=== PATIENT | female | born 1960 | race Caucasian/White ===

== ENCOUNTER 2016-11-16 10:03 | Inpatient (IN) | payer OTHER ==
[~2016-11-16] VITALS: Ht 162.6 cm; Wt 95.3 kg
[2016-11-16] MEDS ORDERED: LORAZEPAM 1 MG TABLET PO PRN ×2 (12:45)
[2016-11-16] MEDS ORDERED: LORAZEPAM 2 MG/1 ML VIAL IM PRN (12:45)
[2016-11-16] MEDS ORDERED: DICYCLOMINE HCL 20 MG TABLET PO PRN (12:45)
[2016-11-16] MEDS ORDERED: ONDANSETRON ODT 4 MG TAB.RAPDIS SL PRN (12:45)
[2016-11-16] MEDS ORDERED: MIRALAX 17 GM POWD.PACK PO PRN (12:45)
[2016-11-16] MEDS ORDERED: IBUPROFEN 400 MG TABLET PO PRN (12:45)
[2016-11-16] MEDS ORDERED: ACETAMINOPHEN 325 MG TABLET PO PRN (12:45)
[2016-11-16] MEDS ORDERED: LOPERAMIDE HCL 2 MG CAPSULE PO PRN ×2 (12:45)
[2016-11-16] MEDS ORDERED: ONDANSETRON 4 MG/2 ML VIAL IM PRN (12:45)
[2016-11-16] MEDS ORDERED: CLONIDINE HCL 0.1 MG TABLET PO PRN (12:45)
[2016-11-16] MEDS ORDERED: MAG HYDROX/AL HYDROX/SIMETH 30 ML LIQUID UDC PO PRN (12:45)
[2016-11-16] MEDS ORDERED: MAGNESIUM HYDROXIDE 30 ML LIQUID UDC PO PRN (12:45)
--- NOTE | 2016-11-16 12:45 | NUR ---
Pre-admission: Patient was seen in the intake office at this time. Alert and oriented x 4. Able to make her needs known. Answers questions regarding the admission process appropriately. VS as ff: Temp 97.2, Pulse 101, RR 17, BP 130/83, PL 0/10, O2 sat at RA 96%. CIWA 4 due to anxiety and barely sweats. Patient appears anxious during the pre-admission assessment. Reassurance and redirection was provided with help. Reports NKA. No seizure history. Ambulatory ad sammie with slow steady gait. Reports past medical hx of depression and anxiety in 2001m also on menopausal and essential tremors. States that she is under the care of Dr. Purvis. Her LBM 11/16/2016 at 0500. Able to void independently. No complains of dysuria. Substance Use as ff: 1. ETOH (Vodka) - since 18 years old. Reports drinking 500cc of Vodka a day for the past 2 years. Last use was today at 1030am and states that she took 6 shots at 1030 am. 2.Klonopin since 15 years ago. Reports taking 1 to 2 mg daily. Last use was 1 mg PO at 11/15/2016 at 1700. Patient brought home meds. Consented for proper disposal of all controlled substances. Addendum: 11/16/16 at 1426 by ROD BOWERS LVN Patient appears acutely intoxicated at the time of arrival.
[2016-11-16] MEDS ORDERED: DESV100T PO (12:48)
[2016-11-16] MEDS ORDERED: PROG100C3 PO (12:48)
[2016-11-16] MEDS ORDERED: GABA-534 PO (12:49)
[2016-11-16] MEDS ORDERED: PROP20TA7 PO (12:50)
[2016-11-16] MEDS ORDERED: ESTR0.5T PO (12:51)
[2016-11-16 13:00] VITALS: BP 138/83
--- NOTE | 2016-11-16 13:00 | NUR ---
Admission Note: Patient in the unit at this time. Escorted by female BHT. Admitted a 56 year old female, who states that she is here to detox off of alcohol. Remains alert and oriented x 4. No changes in LOC noted. Respirations even and unlabored. No SOB noted. No cough. No congestion noted. Abdomen soft and non-distended with (+) BS in all 4 quadrants. No complains of N/V/D or constipation noted. Bladder non-distended. Skin check done. Noted patient with generalized circular shaped rashes all over body area. Patient complains of itching. Patient states "I think it's a reaction to a meds or to my anxiety." Dr. Lambert made aware of patient's skin condition with new orders noted. Orientation to the unit was provided and explained all rules and regulation. Appears to comply with treatment at this time. Patient reports that this is her first time in detox and in treatment. Reports family hx of breast CA, colon CA, heart disease, depression, dementia and ETOH abuse. Patient kept comfortable with lunch served at bedside. All needs met and attended. Will continue to monitor closely.
[2016-11-16 13:13] LABS: *URINE HCG, QUAL NEG (NEGATIVE)
[2016-11-16] MEDS ORDERED: HYDROCORTISONE 1% CREAM 30 GM TUBE TP PRN (13:30)
[2016-11-16] MEDS ORDERED: HYDROXYZINE PAMOATE 25 MG CAPSULE PO ONE (13:30)
[2016-11-16] MEDS ORDERED: ESTR1TAB17 PO (13:42)
--- NOTE | 2016-11-16 13:55 | NUR ---
Vistaril 25 mg PO given x 1: 1 dose of Vistaril 25 mg PO given per MD Lambert to aid in itching and anxiety. Will monitor for effectiveness.
[2016-11-16] MEDS ORDERED: THIAMINE HCL 200 MG/2 ML VIAL IM ONE (14:00)
--- NOTE | 2016-11-16 14:55 | NUR ---
Re-assessment: Per patient, PRN Vistaril was effective in reducing anxiety. Patient is seen in bed with her eyes closed. Chest movement noted. On fall precautions. Call light kept in reach.
[2016-11-16 14:59] LABS: *AMPHETAMINE, URINE NEGATIVE (NEGATIVE); *BARBITURATE, URINE NEGATIVE (NEGATIVE); *CANNABINOID, URINE NEGATIVE (NEGATIVE); *COCCAINE, URINE NEGATIVE (NEGATIVE); *OPIATE, URINE NEGATIVE (NEGATIVE); *PHENCYCLIDINE SCREEN,URINE NEGATIVE (NEGATIVE)
[2016-11-16 16:00] VITALS: BP 140/89
[2016-11-16] MEDS: PROPRANOLOL HCL 20 MG TABLET PO PRN ×2 (16:28→20:32)
--- NOTE | 2016-11-16 16:28 | NUR ---
Propranolol 20mg/Zofran 4 mg ODT and Ativan 1 mg PO given: PRATIBHA 11. Notified MD Lambert. Per MD, ok to give Ativan 1 mg PO at this time. Also noted with tremors, sweating, nausea, anxiety. Medicated patient with Propranolol 20 mg and Zofran 4 mg ODT as ordered. Will monitor for effectiveness.
[2016-11-16 17:27] LABS: BASOPHILS % (AUTO) 0.5 % (0.0-2.0); EOSINOPHILS # (AUTO) 0.2 K/uL (0.0-0.7); EOSINOPHILS % (AUTO) 2.1 % (0.0-7.0); HEMATOCRIT 48.1 % (37-47); HEMOGLOBIN 16.7 G/DL (12.0-16.0); LYMPHOCYTES # (AUTO) 2.3 K/UL (0.8-4.8); LYMPHOCYTES % (AUTO) 28.3 % (20.5-51.5); MEAN CORPUSCULAR HEMOGLOBIN 32.7 UUG (27.0-31.0); MEAN CORPUSCULAR HGB CONC 35 g/dL (32.0-37.0); MEAN CORPUSCULAR VOLUME 94.3 FL (81.0-99.0); MONOCYTES # (AUTO) 0.8 K/UL (0.1-1.30); MONOCYTES % (AUTO) 9.2 % (0.0-11.0); NEUTROPHILS # (AUTO) 4.9 K/UL (1.8-8.9); NEUTROPHILS % (AUTO) 59.9 % (38.5-71.5); PLATELET COUNT (AUTO) 263 K/UL (150-450); WHITE BLOOD COUNT (AUTO) 8.2 K/UL (4.0-11.2)
--- NOTE | 2016-11-16 17:28 | NUR ---
Re-assessment: CIWA 6. No nausea reported. No vomiting. Less anxiety and less tremors noted. PRN Zofran, Ativan and Propranolol was effective in reducing patient's withdrawal symptoms.
[2016-11-16 17:30] LABS: BILIRUBIN,TOTAL 0.6 mg/dL (0.2-1.0); CREATININE 0.8 mg/dL (0.6-1.3); TOTAL PROTEIN, SERUM 7.5 g/dL (6.4-8.2)
[2016-11-16 17:40] LABS: THYROID STIMULATING HORMONE 2.337 mIU/mL (0.358-3.740)
--- NOTE | 2016-11-16 18:41 | NUR ---
End of Shift Notes: Patient is a 56 year old female admitted on 11/16/2016 for ETOH dependence who was placed on a 5-day Ativan taper as ordered which will be started tomorrow AM. Has past medical hx of anxiety, depression, menopause, essential tremors, endometrial resection and breast lumpectomy. Prior to admission, patient was using 500cc of Vodka a day for 2 years and 1 -2 mg of Klonopin for the past 15 years. On fall and seizure precautions. Regular diet. NKA. FULL CODE. VS monitored closely q 4 hours. No significant abnormalities noted. Withdrawal symptoms were closely monitored. Initial CIWA upon admission 4. At 1600, patients CIWA was 11, patient presented with gross tremors, nausea, anxiety, chills and sweats. Medicated patient with Ativan 1 mg PO, Zofran 4 mg ODT and Propranolol 20 mg PO at 1628, with help after 1 hour. Last CIWA 6. Patient presented with fatigue, anxiety and nervousness. Patient was medicated with Vistaril 25 mg PO at 1355 for anxiety with help after 1 hour. Patient was not able to participate in group and activities. Appears anxious and withdrawn. Redirection provided. Intake 1625cc, void x 4, BM x 1. Will continue to monitor closely.
[2016-11-16 20:00] VITALS: BP 134/81
--- NOTE | 2016-11-16 20:00 | NUR ---
START OF SHIFT NOTE RECEIVED REPORT FROM DAY SHIFT NURSE. PATIENT IS A 56 YEAR OLD FEMALE, ADMITTED FOR ETOH/BENZO DEPENDENCE. PATIENT IS ON 5 DAY ATIVAN TAPER. PATIENT IS FULL CODE, REGULAR DIET AND NO KNOWN ALLERGY. PATIENT DRINKS 500 CC OF VODKA DAILY FOR 2 YEARS AND TAKES KLONOPIN 1-2 MG DAILY FOR 15 YEARS. PATIENT REPORTS PMH OF ANXIETY. DEPRESSION, MENOPAUSE, ESSENTIAL TREMOR, NO SEIZURE HISTORY. SURGERY HISTORY OF ENDOMETRIAL RESECTION AND BREAST LUMPECTOMY. NO SEIZURE HISTORY. PATIENT IS ON FALL/SEIZURE PRECAUTION. UPON ADMISSION, PATIENT WITH GENERALIZED RASHES, HYDROCORTISONE AVAILABLE. PATIENT WAS GIVEN ZOFRAN AND PROPRANOLOL DURING THE DAY.PATIENT IN HE R ROOM, PATIENT NOTED WITH TREMORS, STATES ANXIETY, ABDOMINAL CRAMPING, SLIGHTLY NAUSEATED BUT NO EMESIS, SHE STATES THAT SHE GOT ZOFRAN EARLIER, DENIES ANY PAIN AND APPETITE IS GOOD. RELAXATION TECHNIQUE PROVIDED. SAFETY MEASURES IN PLACE. CALL LIGHT IN REACH. WILL CONTINUE TO MONITOR.
[2016-11-16] MEDS: GABAPENTIN 300 MG CAPSULE PO SCH (20:31)
--- NOTE | 2016-11-16 20:32 | NUR ---
PRN INDERAL AND HYDROCORTISONE CREAM GIVEN PATIENT NOTED WITH TREMORS AND C/O OF ITCHINESS. PRN INDERAL AND HYDROCORTISONE GIVEN. WILL MONITOR FOR EFFECTIVENESS
[2016-11-16] MEDS ORDERED: LORAZEPAM 1 MG TABLET PO SCH (21:00)
--- NOTE | 2016-11-16 21:33 | NUR ---
PRN INDERAL AND HYDROCORTISONE RE-ASSESSMENT PATIENT STATES HYDROCORTISONE AND INDERAL HELPFUL. TREMORS AND ITCHINESS SUBSIDED . WILL CONTINUE TO MONITOR.
[2016-11-16] MEDS: diphenhydrAMINE 50 MG CAPSULE PO PRN (21:40)
--- NOTE | 2016-11-16 21:40 | NUR ---
PRN BENADRYL ADMINISTRATION PATIENT REQUESTS FOR SLEEP AID. PRN BENADRYL GIVEN. WILL MONITOR FOR EFFECTIVENESS
--- NOTE | 2016-11-16 23:00 | NUR ---
BHAVANI MARCELO RE-ASSESSMENT PATIENT IN BED ASLEEP. NO S/S OF DISTRESS. RESPIRATION EVEN AND UNLABORED. SAFETY MEASURES IN PLACE. CALL LIGHT IN REACH. WILL CONTINUE TO MONITOR
--- NOTE | 2016-11-16 23:03 | NUR ---
PRN INDERAL AND HYDROCORTISONE CREAM GIVEN PATIENT NOTED WITH TREMORS AND C/O OF ITCHINESS. PRN INDERAL AND HYDROCORTISONE GIVEN. WILL MONITOR FOR EFFECTIVENESS Addendum: 11/16/16 at 2310 by KAYY BARNHART LVN ERROR;DUPLICATE
--- NOTE | 2016-11-16 23:03 | NUR ---
PRN INDERAL AND HYDROCORTISONE CREAM GIVEN PATIENT NOTED WITH TREMORS AND C/O OF ITCHINESS. PRN INDERAL AND HYDROCORTISONE GIVEN. WILL MONITOR FOR EFFECTIVENESS Addendum: 11/16/16 at 2311 by KAYY BARNHART LVN ERROR: DUPLICATE
[2016-11-17] VITALS: BP 109/68
[2016-11-17 04:00] VITALS: BP 109/69
--- NOTE | 2016-11-17 07:15 | NUR ---
End of Shift Notes: Received patient in her room. Alert and oriented x 4. Able to make her needs known. Resirations even and unlabored. No SOB noted. Skin warm and dry to touch. Abdomen soft and non-distended with (+) BS in all 4 quadrants. No complains of N/V/D or constipation noted. Voids independently. Ambulatory ad sammie with steady gait. Patient is a 56 year old female admitted on 11/16/2016 for ETOH dependence who was placed on a 5-day Ativan taper which will be started today. Has past medical hx of anxiety, depression, menopause, essential tremors, endometrial resection and breast lumpectomy. NKA. FULL CODE. Regular diet. On fall and seizure precautions. Educated patient on her current plan of care for the day and her medication regimen. Encouraged oral fluid intake and encouraged group participation to learn new skills to prevent relapse. Will continue to monitor closely. Addendum: 11/17/16 at 0726 by ROD BOWERS LVN Charted in error.
--- NOTE | 2016-11-17 07:24 | NUR ---
END OF SHIFT NOTE PATIENT IS A 56 YEAR OLD FEMALE, ADMITTED FOR ETOH/BENZO DEPENDENCE. PATIENT IS ON 5 DAY ATIVAN TAPER. PATIENT IS FULL CODE, REGULAR DIET AND NO KNOWN ALLERGY. PATIENT DRINKS 500 CC OF VODKA DAILY FOR 2 YEARS AND TAKES KLONOPIN 1-2 MG DAILY FOR 15 YEARS. PATIENT REPORTS PMH OF ANXIETY. DEPRESSION, MENOPAUSE, ESSENTIAL TREMOR, NO SEIZURE HISTORY. SURGERY HISTORY OF ENDOMETRIAL RESECTION AND BREAST LUMPECTOMY. NO SEIZURE HISTORY. PATIENT IS ON FALL/SEIZURE PRECAUTION. UPON ADMISSION, PATIENT WITH GENERALIZED RASHES, HYDROCORTISONE AVAILABLE. PATIENT NOTED WITH TREMORS, STATES ANXIETY, ABDOMINAL CRAMPING, SLIGHTLY NAUSEATED BUT NO EMESIS DURING SHIFT. PATIENT RECEIVED ZOFRAN FROM PREVIOSU SHIFT. DENIES ANY PAIN AND APPETITE IS GOOD. RELAXATION TECHNIQUE PROVIDED. PATIENT WAS GIVEN PRN PROPRANOLOL AND HYDROCORTISONE 1% CREAM AT 2031. BENADRYL GIVEN FOR SLEEP AT 2139. PATIENT STAYS IN HER ROOM MOST OF THE SHIFT. ENCOURAGE PATIENT TO ATTEND GROUPS. PATIENT COMPLIANT WITH MEDICATIONS. NO ADVERSE REACTION NOTED. REMAIN FREE OF INJURY. SAFETY MEASURES IN PLACE. CALL LIGHT IN REACH. WILL CONTINUE TO MONITOR. SLEPT 7 HOURS. FLUID INTAKE 1,000 ML. VOIDED X 2 . NO BM. LAST CIWA 1.
--- NOTE | 2016-11-17 07:25 | NUR ---
Start of Shift Notes: Received patient in her room. Alert and oriented x 4. Able to make her needs known. Resirations even and unlabored. No SOB noted. Skin warm and dry to touch. Abdomen soft and non-distended with (+) BS in all 4 quadrants. No complains of N/V/D or constipation noted. Voids independently. Ambulatory ad sammie with steady gait. Patient is a 56 year old female admitted on 11/16/2016 for ETOH dependence who was placed on a 5-day Ativan taper which will be started today. Has past medical hx of anxiety, depression, menopause, essential tremors, endometrial resection and breast lumpectomy. NKA. FULL CODE. Regular diet. On fall and seizure precautions. Educated patient on her current plan of care for the day and her medication regimen. Encouraged oral fluid intake and encouraged group participation to learn new skills to prevent relapse. Will continue to monitor closely.
[2016-11-17 08:00] VITALS: BP 108/66
[2016-11-17] MEDS: PATIENT MAY USE OWN MED- MD OK PO SCH ×2 (08:23→08:24)
[2016-11-17] MEDS: LORAZEPAM 1 MG TABLET PO SCH ×4 (08:24→20:05)
--- NOTE | 2016-11-17 08:24 | NUR ---
Propranolol 20 mg PO given: Patient noted with BUE gross tremors, sweats and anxiety. CIWA 13. Medicated patient with Propranolol 20 mg PO as ordered. BP stable. Initial dose of Ativan taper started at this time.
[2016-11-17] MEDS: PROPRANOLOL HCL 20 MG TABLET PO PRN (08:25)
[2016-11-17] MEDS: THIAMINE HCL 100 MG TABLET PO SCH (08:25)
[2016-11-17] MEDS: GABAPENTIN 300 MG CAPSULE PO SCH ×2 (08:25→20:05)
[2016-11-17] MEDS: MULTIVITAMINS,THERAPEUTIC TABLET PO SCH (08:26)
[2016-11-17] MEDS: FOLIC ACID 1 MG TABLET PO SCH (08:26)
[2016-11-17] MEDS: VENLAFAXINE XR 150 MG CAP.SR.24H PO SCH (08:26)
[2016-11-17] MEDS ORDERED: TUBERCULIN,PURIF.PROT.DERIV. 5 TU/0.1 ML TEST ID ONE (09:00)
--- NOTE | 2016-11-17 09:24 | NUR ---
Re-assessment: Per patient, PRN Propranolol was effective in reducing patient's tremors.
--- NOTE | 2016-11-17 09:47 | NUR ---
MD Communication: Patient requested Vistaril for anxiety. Notified MD Lambert. MD will enter in orders.
[2016-11-17 12:00] VITALS: BP 122/69
[2016-11-17 14:09] LABS: HEPATITIS B SURFACE AG Negative (Negative)
[2016-11-17 16:00] VITALS: BP 132/81
--- NOTE | 2016-11-17 16:09 | NUR ---
Clinician encouraged the client to attend groups and gave client the group times. Client stated she felt very tired but would try once she felt better.
--- NOTE | 2016-11-17 18:41 | NUR ---
End of Shift Notes: Patient is a 56 year old female admitted on 11/16/2016 for ETOH dependence who was placed on a 5-day Ativan taper as ordered with first day of taper that started today. Has past medical hx of anxiety, depression, menopause, essential tremors, endometrial resection and breast lumpectomy. Prior to admission, patient was using 500cc of Vodka a day for 2 years and 1 -2 mg of Klonopin for the past 15 years. On fall and seizure precautions. Regular diet. NKA. FULL CODE. VS monitored closely q 4 hours. No significant abnormalities noted. Withdrawal symptoms were closely monitored. Initial CIWA 13, patient presented with gross tremors, anxiety, chills and sweats. Medicated patient with Propranolol 20 mg PO, at 0824 with help after 1 hour. Last CIWA 4. Patient presented with fatigue, anxiety and nervousness. Patient was not able to participate in group and activities due to her withdrawal symptoms. Appears anxious and withdrawn and depressed. Redirection provided. Appetite good. Intake 2250cc,void x 8, no BM. Will continue to monitor closely.
[2016-11-17 20:00] VITALS: BP 120/83
--- NOTE | 2016-11-17 20:00 | NUR ---
Start of Shift Pt is a 56 year old female admitted for ETOH dependence, placed on 5 day Ativan taper. Pt reported use of 500cc/daily. Pt also reported use of Klonopin 1-2mg/daily. PMH: Anxiety, depression, menopause, essential tremors, sx of endometrial resection and breast lumpectomy. NKA, regular diet, fall/seizure precautions - denies hx of seizures and full code. Upon assessment, pt presents with anxiety, visible tremors, reports mild chills throughout body, skin flush/clammy, respirations even/unlabored, denies SOB/chest pain, denies SI/HI, bowel sounds active x4, abdomen soft. Safety measures in place, call light within reach, side rails up x2, bed locked and in low position. Will continue to monitor.
[2016-11-17] MEDS: diphenhydrAMINE 50 MG CAPSULE PO PRN (20:11)
--- NOTE | 2016-11-17 20:11 | NUR ---
PRN Administration Pt requested aid to help her sleep, nonpharmacological methods ineffective. Benadryl 50mg PRN administered. Safety measures in place. Will continue to monitor.
--- NOTE | 2016-11-17 21:11 | NUR ---
PRN Reassessment Upon reassessment, pt is sleeping, Benadryl 50mg PRN effective. No s/s of acute distress noted, respirations even/unlabored. Safety measures in place. Will continue to monitor.
[2016-11-18] VITALS: BP 116/78
--- NOTE | 2016-11-18 | NUR ---
Vital Signs BP 116/78, Pulse 74, Respirations 16, SpO2 97%, temp 97.8 Pain 0/10 CIWA deferred d/t pt sleeping, to assess while pt is awake as ordered. Safety measures in place, will continue to monitor.
[2016-11-18 04:00] VITALS: BP 109/63
--- NOTE | 2016-11-18 04:00 | NUR ---
Vital Signs BP 109/63, Pulse 72, Respirations 14, SpO2 97%, temp 98. Pain 0/10 CIWA deferred d/t pt sleeping, to assess while pt is awake as ordered. Safety measures in place, will continue to monitor.
--- NOTE | 2016-11-18 07:00 | NUR ---
End of Shift Pt is a 56 year old female admitted for ETOH dependence, placed on 5 day Ativan taper. Pt reported use of 500cc/daily. Pt also reported use of Klonopin 1-2mg/daily. PMH: Anxiety, depression, menopause, essential tremors, sx of endometrial resection and breast lumpectomy. NKA, regular diet, fall/seizure precautions - denies hx of seizures and full code. During shift, pt presented with anxiety, visible tremors, reports mild chills throughout body, skin flush/clammy - scheduled taper medications administered during shift, CIWA 5. Benadryl 50mg PRN administered for sleep, effective. Pt slept for 9 hours, intake of 1210 ml Po and voids x4. Safety measures in place, call light within reach, side rails up x2, bed locked and in low position. Endorsed to day shift.
--- NOTE | 2016-11-18 07:01 | NUR ---
Start of Shift Notes: Received patient in her room. Alert and oriented x 4. Able to make her needs known. Resirations even and unlabored. No SOB noted. Skin warm and dry to touch. Abdomen soft and non-distended with (+) BS in all 4 quadrants. No complains of N/V/D or constipation noted. Voids independently. Ambulatory ad sammie with steady gait. Patient is a 56 year old female admitted on 11/16/2016 for ETOH dependence who was placed on a 5-day Ativan taper . Tolerated well. No adverse reactions noted. Has past medical hx of anxiety, depression, menopause, essential tremors, endometrial resection and breast lumpectomy. NKA. FULL CODE. Regular diet. On fall and seizure precautions. PRN Benadryl was given during the night. Slept for 9 hours. Educated patient on her current plan of care for the day and her medication regimen. Encouraged oral fluid intake and encouraged group participation to learn new skills to prevent relapse. Will continue to monitor closely.
[2016-11-18 08:00] VITALS: BP 132/91
[2016-11-18] MEDS: THIAMINE HCL 100 MG TABLET PO SCH (08:25)
[2016-11-18] MEDS: GABAPENTIN 300 MG CAPSULE PO SCH ×3 (08:25→20:02)
[2016-11-18] MEDS: PATIENT MAY USE OWN MED- MD OK PO SCH ×2 (08:27)
[2016-11-18] MEDS: FOLIC ACID 1 MG TABLET PO SCH (08:28)
[2016-11-18] MEDS: LORAZEPAM 1 MG TABLET PO SCH ×3 (08:28→20:02)
[2016-11-18] MEDS: VENLAFAXINE XR 150 MG CAP.SR.24H PO SCH (08:28)
[2016-11-18] MEDS: MULTIVITAMINS,THERAPEUTIC TABLET PO SCH (08:28)
[2016-11-18 12:00] VITALS: BP 132/91
[2016-11-18] MEDS: HYDROXYZINE PAMOATE 25 MG CAPSULE PO PRN (12:35)
--- NOTE | 2016-11-18 12:35 | NUR ---
Vistaril 25 mg and Motrin 400 mg PO given: Patient's pulse 100 while at rest. Patient complains of anxiety and headache 10/20. CIWA 10. Medicated patient with Vistaril 25 mg PO and Motrin 400 mg PO as ordered. Will monitor for effectiveness.
--- NOTE | 2016-11-18 13:35 | NUR ---
Re-assessment: Per patient, PRN Motrin and Vistaril were effective in reducing patient's anxiety and headache. PL 06/22.
[2016-11-18 16:00] VITALS: BP 137/95
--- NOTE | 2016-11-18 18:45 | NUR ---
End of Shift Notes: Patient is a 56 year old female admitted on 11/16/2016 for ETOH dependence who was placed on a 5-day Ativan taper as ordered with first day of taper that started today. Has past medical hx of anxiety, depression, menopause, essential tremors, endometrial resection and breast lumpectomy. Prior to admission, patient was using 500cc of Vodka a day for 2 years and 1 -2 mg of Klonopin for the past 15 years. On fall and seizure precautions. Regular diet. NKA. FULL CODE. VS monitored closely q 4 hours. No significant abnormalities noted. Withdrawal symptoms were closely monitored. Initial CIWA 6, patient presented with gross tremors, anxiety, chills and sweats. Last CIWA 5. Patient requires encouragement to attend group and activities. Socially withdrawn and isolative. Redirection provided. Appetite good. Will continue to monitor closely.
[2016-11-18 20:00] VITALS: BP 138/91
--- NOTE | 2016-11-18 20:00 | NUR ---
Start of Shift Pt is a 56 year old female admitted for ETOH dependence, placed on 5 day Ativan taper. Pt reported use of 500cc/daily. Pt also reported use of Klonopin 1-2mg/daily. PMH: Anxiety, depression, menopause, essential tremors, sx of endometrial resection and breast lumpectomy. NKA, regular diet, fall/seizure precautions - denies hx of seizures and full code. Upon assessment, pt presents with anxiety, reports body aches, skin noted with moderate sweat, face flushed, respirations even/unlabored, denies SOB/chest pain, denies SI/HI, bowel sounds active x4, abdomen soft. Safety measures in place, call light within reach, side rails up x2, bed locked and in low position. Will continue to monitor.
[2016-11-18] MEDS: diphenhydrAMINE 50 MG CAPSULE PO PRN (20:02)
--- NOTE | 2016-11-18 20:02 | NUR ---
PRN Administration Pt reported difficulty falling asleep - requested aid. Non-pharmacological methods ineffective. Benadryl 50mg PRN administered. Safety measures in place. Will continue to monitor.
--- NOTE | 2016-11-18 21:05 | NUR ---
PRN Reassessment Upon reassessment, pt is sleeping, no s/s of acute distress noted, respirations even/unlabored. Safety measures in place. Will continue to monitor.
[2016-11-19] VITALS: BP 113/78
--- NOTE | 2016-11-19 | NUR ---
Vital Signs BP 113/78, Pulse 84, respirations 18, SpO2 97%, temp 98.6, no pain 0/10 CIWA deferred d/t pt sleeping - to assess while pt is awake as ordered. Safety measures in place. Will continue to monitor.
[2016-11-19 04:00] VITALS: BP 130/82
--- NOTE | 2016-11-19 04:00 | NUR ---
Vital Signs BP 130/82, Pulse 89, respirations 12, SpO2 96%, temp 98.3, no pain 0/10 CIWA deferred d/t pt sleeping - to assess while pt is awake as ordered. Safety measures in place. Will continue to monitor.
--- NOTE | 2016-11-19 07:00 | NUR ---
End of Shift Pt is a 56 year old female admitted for ETOH dependence, placed on 5 day Ativan taper. Pt reported use of 500cc/daily. Pt also reported use of Klonopin 1-2mg/daily. PMH: Anxiety, depression, menopause, essential tremors, sx of endometrial resection and breast lumpectomy. NKA, regular diet, fall/seizure precautions - denies hx of seizures and full code. During shift, pt presented with anxiety, reports body aches, skin noted with moderate sweat, face flushed - scheduled taper medications administered, CIWA 6. Benadryl 50mg PRN administered for sleep, effective. Pt slept for 7 hours, intake of 1241 ml PO and voids x3. Safety measures in place, call light within reach, side rails up x2, bed locked and in low position. Endorsed to day shift nurse.
--- NOTE | 2016-11-19 07:01 | NUR ---
Start of Shift Notes: Received patient in her room. Alert and oriented x 4. Able to make her needs known. Resirations even and unlabored. No SOB noted. Skin warm and dry to touch. Abdomen soft and non-distended with (+) BS in all 4 quadrants. No complains of N/V/D or constipation noted. Voids independently. Ambulatory ad sammie with steady gait. Patient is a 56 year old female admitted on 11/16/2016 for ETOH dependence who was placed on a 5-day Ativan taper . Tolerated well. No adverse reactions noted. Has past medical hx of anxiety, depression, menopause, essential tremors, endometrial resection and breast lumpectomy. NKA. FULL CODE. Regular diet. On fall and seizure precautions. PRN Benadryl was given during the night. Slept for 6 hours. Last CIWA 6.Educated patient on her current plan of care for the day and her medication regimen. Encouraged oral fluid intake and encouraged group participation to learn new skills to prevent relapse. Will continue to monitor closely.
[2016-11-19 08:00] VITALS: BP 116/80
[2016-11-19] MEDS: FOLIC ACID 1 MG TABLET PO SCH (08:12)
[2016-11-19] MEDS: MULTIVITAMINS,THERAPEUTIC TABLET PO SCH (08:12)
[2016-11-19] MEDS: LORAZEPAM 1 MG TABLET PO SCH ×4 (08:12→21:21)
[2016-11-19] MEDS: GABAPENTIN 300 MG CAPSULE PO SCH ×3 (08:12→21:21)
[2016-11-19] MEDS: VENLAFAXINE XR 150 MG CAP.SR.24H PO SCH (08:12)
[2016-11-19] MEDS: THIAMINE HCL 100 MG TABLET PO SCH (08:12)
[2016-11-19] MEDS: PATIENT MAY USE OWN MED- MD OK PO SCH ×2 (08:13→08:14)
--- NOTE | 2016-11-19 11:54 | NUR ---
MD Communication: Patient's pulse 127 while at rest. Patient states that she just feels anxious. No complains of chest pain noted. No complains of lightheadedness and chest discomfort. Notified MD Lambert with orders to do "STAT" EKG. is unable to enter orders at this time. Telephone order received.
[2016-11-19 12:00] VITALS: BP 139/90
[2016-11-19] MEDS: HYDROXYZINE PAMOATE 25 MG CAPSULE PO PRN ×2 (12:01→21:21)
--- NOTE | 2016-11-19 12:01 | NUR ---
Vistaril 25 mg PO given: Patient noted with pulse 127. BP 139/90. Complains of anxiety. Redirection and reassurance was provided. Medicated patient with Vistaril 25 mg PO as ordered. Will monitor for effectiveness.
--- NOTE | 2016-11-19 13:01 | NUR ---
Re-assessment: Per patient, PRN Vistaril was mildly effective in reducing her anxiety.
--- NOTE | 2016-11-19 14:00 | NUR ---
Taper modified: Patient's taper was modified to a 4-day Ativan taper per MD.
[2016-11-19] MEDS: PROPRANOLOL HCL 20 MG TABLET PO PRN (14:04)
--- NOTE | 2016-11-19 14:04 | NUR ---
Propranolol 20 mg PO given: CIWA 9 due to anxiety and tremors. Propranolol 20 mg PO given as ordered. Will monitor for effectiveness.
--- NOTE | 2016-11-19 15:04 | NUR ---
Re-assessment: Per patient, PRN Propranolol 20 mg PO was effective in reducing tremors and anxiety. Less tremors and anxiety is noted. Patient took a shower and is now speaking with Jian, client portfolio manager.
[2016-11-19 16:00] VITALS: BP 133/93
--- NOTE | 2016-11-19 18:51 | NUR ---
End of Shift Notes: Patient is a 56 year old female admitted on 11/16/2016 for ETOH dependence who was placed on a 5-day Ativan taper as ordered, MD modified patients taper to a 4-day Ativan taper. Has past medical hx of anxiety, depression, menopause, essential tremors, endometrial resection and breast lumpectomy. Prior to admission, patient was using 500cc of Vodka a day for 2 years and 1 -2 mg of Klonopin for the past 15 years. On fall and seizure precautions. Regular diet. NKA. FULL CODE. VS monitored closely q 4 hours. Noted with tachycardia with MO of 127 while at rest. MD aware. EKG stat was ordered and with results of sinus tachycardia. Withdrawal symptoms were closely monitored. Initial CIWA 6, patient presented with anxiety, chills, sweating and fine tremors. Last CIWA 6. Medicated patient with Vistaril 25 mg PO at 1201 and Propranolol 20 mg PO at 1404 for anxiety and tremors with help after 1 hour. Patient requires encouragement to attend group and activities. Socially withdrawn and isolative. Redirection provided. Appetite good. Will continue to monitor closely.
--- NOTE | 2016-11-19 19:15 | NUR ---
START OF SHIFT NOTE : Pt is a 56 year old female admitted for ETOH dependence, placed on 4 day Modified Ativan taper. Alert and oriented x 4. Able to make her needs known. Resirations even and unlabored. No SOB noted. Skin warm and dry to touch. Abdomen soft and non-distended with (+) BS in all 4 quadrants. No complains of N/V/D or constipation noted. Voids independently. Ambulatory ad sammie with steady gait. NKA. FULL CODE. Regular diet. On fall and seizure precautions. Educated patient on her current plan of care for the day and her medication regimen. Encouraged oral fluid intake and encouraged group participation to learn new skills to prevent relapse. Safety measures in place : bed on lowest position with side rails x2 up for safety, call light within reach. Will continue to monitor closely and offer help.
[2016-11-19 20:00] VITALS: BP 123/75
--- NOTE | 2016-11-19 21:00 | NUR ---
PRN BENADRYL, VISTARIL Pt. complains of increased level of anxiety, sleeplessness.PRN BENADRYL, VISTARIL given as ordered. Safety measures in place : bed on lowest position with side rails x2 up for safety, call light within reach. Will continue to monitor closely and offer help.
[2016-11-19] MEDS: diphenhydrAMINE 50 MG CAPSULE PO PRN (21:21)
--- NOTE | 2016-11-19 21:55 | NUR ---
REASSESSMENT PATY MARCELO Pt. is sleeping, RR=16, unlabored and even. Safety measures in place : bed on lowest position with side rails x2 up for safety, call light within reach. Will continue to monitor closely and offer help.
--- NOTE | 2016-11-20 06:39 | NUR ---
END OF SHIFT NOTE : Pt is a 56 year old female admitted for ETOH dependence, placed on 4 day Modified Ativan taper. Alert and oriented x 4. Able to make her needs known. Resirations even and unlabored. No SOB noted. Skin warm and dry to touch. Abdomen soft and non-distended with (+) BS in all 4 quadrants. No complains of N/V/D or constipation noted. Voids independently. Ambulatory ad sammie with steady gait. NKA. FULL CODE. Regular diet. On fall and seizure precautions. Educated patient on her current plan of care for the day and her medication regimen. Encouraged oral fluid intake and encouraged group participation to learn new skills to prevent relapse. Pt remains compliant with the treatment plan. PRN BENADRYL, VISTARIL were given during my shift. V/S remain WNL. RR=16, even and unlabored, lungs clear upon auscultation, abdomen soft and non- distended. Pt denies nausea, vomiting and diarrhea. LAST CIWA=4 at 0400 , INTAKE=1,100 ml, voided x 4, slept 4 hours. Safety measures in place : bed on lowest position with side rails x2 up for safety, call light within reach. Will continue to monitor closely and offer help.
[2016-11-20 08:00] VITALS: BP 104/79
--- NOTE | 2016-11-20 08:10 | NUR ---
START OF SHIFT: RECEIVED PT A/O X 4. SHE PRESENTS WITH ANXIOUS MOOD AND CONGRUENT AFFECT. SHE C/O ANXIETY,TREMORS AND SWEATS. CIWA 4 ATIVAN TAPER IN PROGRESS.ENCOURAGED INCREASED FLUIDS TO ASSIST IN FACILITATING DETOX PROCESS. ENCOURAGED GROUP ATTENDANCE TO IMPROVE COPING SKILLS AND PREVENT RELAPSE. WILL CONTINUE TO MONITOR.
[2016-11-20] MEDS: GABAPENTIN 300 MG CAPSULE PO SCH ×3 (08:33→21:24)
[2016-11-20] MEDS: LORAZEPAM 1 MG TABLET PO SCH ×2 (08:34→21:24)
[2016-11-20] MEDS: MULTIVITAMINS,THERAPEUTIC TABLET PO SCH (08:34)
[2016-11-20] MEDS: VENLAFAXINE XR 150 MG CAP.SR.24H PO SCH (08:34)
[2016-11-20] MEDS: THIAMINE HCL 100 MG TABLET PO SCH (08:34)
[2016-11-20] MEDS: FOLIC ACID 1 MG TABLET PO SCH (08:34)
[2016-11-20] MEDS: PATIENT MAY USE OWN MED- MD OK PO SCH ×2 (08:35)
[2016-11-20] MEDS ORDERED: LORAZEPAM 1 MG TABLET PO SCH (09:00)
[2016-11-20] MEDS ORDERED: PNEUMOCOCCAL 23-VAL P-SAC VAC 0.5 ML VIAL IM ONE (09:00)
[2016-11-20 12:00] VITALS: BP 129/85
[2016-11-20] MEDS: PROPRANOLOL HCL 20 MG TABLET PO PRN (15:21)
[2016-11-20 16:00] VITALS: BP 140/100
--- NOTE | 2016-11-20 18:48 | NUR ---
END OF SHIFT: PT CONTINUES ON ATIVAN TAPER. LAST CIWA 4. PT C/O ANXIETY,TREMORS,FATIGUE AND DEPRESSION. SHE DENIES S/I AND H/I. SHE STAYED IN HER ROOM MOST OF SHIFT WITH VERY LITTLE INTERACTION WITH PEERS. ENCOURAGED HER TO ATTEND GROUPS. SHE STATED SHE WILL TRY TOMORROW. WILL PASS SHIFT REPORT TO ONCOMING NIGHT NURSE.
--- NOTE | 2016-11-20 19:15 | NUR ---
START OF SHIFT NOTE : Pt is a 56 year old female admitted for ETOH dependence, placed on 4 day Modified Ativan taper. Alert and oriented x 4. Able to make her needs known. Resirations even and unlabored. No SOB noted. Skin warm and dry to touch. Abdomen soft and non-distended with (+) BS in all 4 quadrants. No complains of N/V/D or constipation noted. Voids independently. Ambulatory ad sammie with steady gait. NKA. FULL CODE. Regular diet. On fall and seizure precautions. Educated patient on her current plan of care for the day and her medication regimen. Encouraged oral fluid intake and encouraged group participation to learn new skills to prevent relapse. Pt. states she feels better today, but still anxious. Safety measures in place : bed on lowest position with side rails x2 up for safety, call light within reach. Will continue to monitor closely and offer help.
[2016-11-20 20:00] VITALS: BP 136/87
[2016-11-20] MEDS: diphenhydrAMINE 50 MG CAPSULE PO PRN (21:24)
[2016-11-20] MEDS: HYDROXYZINE PAMOATE 25 MG CAPSULE PO PRN (21:24)
--- NOTE | 2016-11-21 06:43 | NUR ---
END OF SHIFT NOTE : Pt is a 56 year old female admitted for ETOH dependence, placed on 4 day Modified Ativan taper. Alert and oriented x 4. Able to make her needs known. Resirations even and unlabored. No SOB noted. Skin warm and dry to touch. Abdomen soft and non-distended with (+) BS in all 4 quadrants. No complains of N/V/D or constipation noted. Voids independently. Ambulatory ad sammie with steady gait. NKA. FULL CODE. Regular diet. On fall and seizure precautions. Educated patient on her current plan of care for the day and her medication regimen. Encouraged oral fluid intake and encouraged group participation to learn new skills to prevent relapse Pt remains compliant with the treatment plan. PRN VISTARIL, BENADRYL were given during my shift. V/S remain WNL. RR=16, even and unlabored, lungs clear upon auscultation, abdomen soft and non- distended. Pt denies nausea, vomiting and diarrhea. LAST CIWA=4 at 0400 , [id number] ml, voided x 1, slept 8 hours. Safety measures in place : bed on lowest position with side rails x2 up for safety, call light within reach. Will continue to monitor closely and offer help.
[2016-11-21 08:00] VITALS: BP 118/74
--- NOTE | 2016-11-21 08:08 | NUR ---
START OF SHIFT: RECEIVED PT A/O X 4. SHE PRESENTS WITH GUARDED AFFECT AND ANXIOUS MOOD. SHE REPORTS SOME ANXIETY. SHE STATES SHE FEELS A BIT SAD ABOUT WHERE HER ALCOHOLISM HAS TAKEN HER AND THE STRAIN IT HAS PUT ON HER MARRIAGE. ENCOURAGED PT TO ATTEND GROUP TO PROCESS FEELINGS. ENCOURAGED INCREASED FLUIDS. CIWA 1. ATIVAN TAPER COMPLETED. WILL CONTINUE TO MONITOR.
[2016-11-21] MEDS: PATIENT MAY USE OWN MED- MD OK PO SCH ×2 (08:37→08:38)
[2016-11-21] MEDS: GABAPENTIN 300 MG CAPSULE PO SCH ×3 (08:38→20:51)
[2016-11-21] MEDS: FOLIC ACID 1 MG TABLET PO SCH (08:38)
[2016-11-21] MEDS: THIAMINE HCL 100 MG TABLET PO SCH (08:38)
[2016-11-21] MEDS: MULTIVITAMINS,THERAPEUTIC TABLET PO SCH (08:38)
[2016-11-21] MEDS: VENLAFAXINE XR 150 MG CAP.SR.24H PO SCH (08:38)
[2016-11-21] MEDS ORDERED: LORAZEPAM 1 MG TABLET PO SCH (09:00)
[2016-11-21 12:00] VITALS: BP 154/96
[2016-11-21] MEDS: PROPRANOLOL HCL 20 MG TABLET PO PRN (12:51)
--- NOTE | 2016-11-21 13:00 | NUR ---
INDERAL GIVEN TO PT PER HER REQUEST. SHE REPORTS ANXIETY AND PULSE IS ELEVATED 104.
[2016-11-21 13:31] LABS: *AMPHETAMINE, URINE NEGATIVE (NEGATIVE); *BARBITURATE, URINE NEGATIVE (NEGATIVE); *CANNABINOID, URINE NEGATIVE (NEGATIVE); *COCCAINE, URINE NEGATIVE (NEGATIVE); *OPIATE, URINE NEGATIVE (NEGATIVE); *PHENCYCLIDINE SCREEN,URINE NEGATIVE (NEGATIVE)
--- NOTE | 2016-11-21 14:05 | NUR ---
PT STATES INDERAL WAS MILDLY EFFECTIVE.
[2016-11-21 16:00] VITALS: BP 141/89
[2016-11-21] MEDS ORDERED: VENL150C2 PO (17:43)
[2016-11-21] MEDS ORDERED: HYDR-3895 PO (17:43)
[2016-11-21] MEDS ORDERED: DIPH50CA37 PO (17:43)
[2016-11-21] MEDS ORDERED: GABA-534 PO ×2 (17:43)
--- NOTE | 2016-11-21 18:48 | NUR ---
END OF SHIFT: PT COMPLETED ATIVAN TAPER. LAST CIWA 3 SHE CONTINUES TO PRESENT WITH ANXIOUS MOOD AND CONGRUENT AFFECT.PT C/O ANXIETY AND DEPRESSION. SHE DENIES S/I AND H/I. SHE STAYED IN HER ROOM MOST OF SHIFT.PRN INDERAL GIVEN FOR REPORTED ANXIETY AND INCREASED HR. AND WAS EFFECTIVE. DISCHARGE PLANNING IN PROGRESS FOR 11/22. UDS COLLECTED.PT IS EXTREMELY ANXIOUS ABOUT DC AND STATES SHE IS CONCERNED ABOUT HER ETOH CRAVINGS. OFFERED SUPPORT AND ENCOURAGED 12 STEP MEETINGS. MADE AWARE AND WILL DISCUSS DISCHARGE MEDS WITH PT.[facility]
--- NOTE | 2016-11-21 19:15 | NUR ---
START OF SHIFT : Pt is a 56 year old female admitted for ETOH dependence, placed on 4 day Modified Ativan taper. Alert and oriented x 4. Able to make her needs known. Respirations even and unlabored. No SOB noted. Skin warm and dry to touch. Abdomen soft and non-distended with (+) BS in all 4 quadrants. No complains of N/V/D or constipation noted. Voids independently. Ambulatory ad sammie with steady gait. NKA. FULL CODE. Regular diet. On fall and seizure precautions. PT COMPLETED ATIVAN TAPER. LAST CIWA 3 SHE CONTINUES TO PRESENT WITH ANXIOUS MOOD AND CONGRUENT AFFECT. Encouraged oral fluid intake and encouraged group participation to learn new skills to prevent relapse. Pt. states she feels better today, but still anxious. Safety measures in place : bed on lowest position with side rails x2 up for safety, call light within reach. Will continue to monitor closely and offer help.
[2016-11-21 20:00] VITALS: BP 126/83
[2016-11-21] MEDS: diphenhydrAMINE 50 MG CAPSULE PO PRN (20:51)
[2016-11-21] MEDS: HYDROXYZINE PAMOATE 25 MG CAPSULE PO PRN (20:51)
--- NOTE | 2016-11-22 06:56 | NUR ---
END OF SHIFT : Pt is a 56 year old female admitted for ETOH dependence, placed on 4 day Modified Ativan taper. Alert and oriented x 4. Able to make her needs known. Respirations even and unlabored. No SOB noted. Skin warm and dry to touch. Abdomen soft and non-distended with (+) BS in all 4 quadrants. No complains of N/V/D or constipation noted. Voids independently. Ambulatory ad sammie with steady gait. NKA. FULL CODE. Regular diet. On fall and seizure precautions. PT COMPLETED ATIVAN TAPER. LAST .SHE CONTINUES TO PRESENT WITH ANXIOUS MOOD AND CONGRUENT AFFECT. Encouraged oral fluid intake and encouraged group participation to learn new skills to prevent relapse. Pt. states she feels better today, but still anxious. Pt remains compliant with the treatment plan. PRN BENADRYL, VISTARIL given during my shift. V/S remain WNL. RR=16, even and unlabored, lungs clear upon auscultation, abdomen soft and non- distended. Pt denies nausea, vomiting and diarrhea, she will be D/C today. LAST CIWA=3 at 0400 , INTAKE=1,110 ml, voided x 3, slept 7 hours. Safety measures in place : bed on lowest position with side rails x2 up for safety, call light within reach. Will continue to monitor closely and offer help.
[2016-11-22 08:00] VITALS: BP 141/94
--- NOTE | 2016-11-22 08:00 | NUR ---
START OF SHIFT: RECEIVED PT A/O X 4. SHE PRESENTS WITH RESTRICTED AFFECT AND ANXIOUS MOOD. SHE REPORTS ANXIETY ABOUT DISCHARGING TODAY. OFFERED SUPPORT. ENCOURAGED PT TO ATTEND GROUP TO PROCESS FEELINGS. ENCOURAGED HER TO ATTEND 12 STEP MEETINGS ALONG WITH THE IPO PROGRAM SHE WILL BE ATTENDING. CIWA 1. ATIVAN TAPER COMPLETED. WILL MEDICATE ORDERED. WILL CONTINUE TO MONITOR AND PROVIDE SAFE AND SUPPORTIVE ENVIRONMENT.
[2016-11-22] MEDS: VENLAFAXINE XR 150 MG CAP.SR.24H PO SCH (08:34)
[2016-11-22] MEDS: THIAMINE HCL 100 MG TABLET PO SCH (08:34)
[2016-11-22] MEDS: MULTIVITAMINS,THERAPEUTIC TABLET PO SCH (08:34)
[2016-11-22] MEDS: PROPRANOLOL HCL 20 MG TABLET PO PRN (08:34)
[2016-11-22] MEDS: FOLIC ACID 1 MG TABLET PO SCH (08:35)
[2016-11-22] MEDS: HYDROXYZINE PAMOATE 25 MG CAPSULE PO PRN (08:35)
[2016-11-22] MEDS: PATIENT MAY USE OWN MED- MD OK PO SCH ×2 (08:35)
[2016-11-22] MEDS: GABAPENTIN 300 MG CAPSULE PO SCH (08:35)
[2016-11-22 12:04] VITALS: BP 146/94
--- NOTE | 2016-11-22 12:35 | NUR ---
DISCHARGE: PT A/O X 4. SHE DENIES S/I AND H/I. SHE STATES SHE IS MOTIVATED TOWARD RECOVERY EVEN THOUGH SHE IS NERVOUS ABOUT GOING HOME. SHE WILL BE ATTENDING IPO AND 12 STEP MEETINGS. BELONGINGS RETURNED. EDUCATED PT ON DISCHARGE INSTRUCTIONS AND MEDICATIONS. PT EXPRESSED VERBAL UNDERSTANDING OF EDUCATION. HOSPICE DIRECTOR ESCORTED PT TO [facility] WHERE SHE WAS TRANSPORTED HOME.
== END 2016-11-22 12:17 | disposition home or self-care (01) | DRG 895 ==
LOC: SRC 11:38
PROVIDERS: ADMIT Internal Medicine; ATTEND Internal Medicine
PROC: HZ2ZZZZ Detoxification Services for Substance Abuse Treatment (ICD-10-PCS; principal; 2016-11-16)
PROC: HZ31ZZZ Individual Counseling for Substance Abuse Treatment, Behavioral (ICD-10-PCS; 2016-11-17)
PROC: HZ41ZZZ Group Counseling for Substance Abuse Treatment, Behavioral (ICD-10-PCS; 2016-11-19)
DX: F10.230 Alcohol dependence with withdrawal, uncomplicated (principal); F33.1 Major depressive disorder, recurrent, moderate; F10.220 Alcohol dependence with intoxication, uncomplicated; K70.10 Alcoholic hepatitis without ascites; F13.90 Sedative, hypnotic, or anxiolytic use, unspecified, uncomplicated; Y90.9 Presence of alcohol in blood, level not specified; Z78.0 Asymptomatic menopausal state; Z80.3 Family history of malignant neoplasm of breast; Z80.0 Family history of malignant neoplasm of digestive organs; Z81.8 Family history of other mental and behavioral disorders; Z81.1 Family history of alcohol abuse and dependence; Z87.891 Personal history of nicotine dependence; Z79.890 Hormone replacement therapy; G25.0 Essential tremor; F41.9 Anxiety disorder, unspecified; G47.00 Insomnia, unspecified; R00.0 Tachycardia, unspecified
CPT/HCPCS: 36415; 70030-TC; 80307; 83690; 83735; 84443; 84703; 85025; 86580; 86592; 86705; 86803; 87340; 87806; 93005; G0480; J3411; Q0162; Q0163